=== PATIENT | female | born 1990 | race African-American/Black ===

== ENCOUNTER 2019-12-07 22:57 | Observation (INO) | payer MEDICAID ==
[~2019-12-07] VITALS: Ht 167.6 cm; Wt 106.6 kg
[2019-12-08 00:12] LABS: CLARITY URINE CLEAR (CLEAR); COLOR URINE YELLOW (YELLOW); KETONES URINE NEGATIVE (NEGATIVE); LEUKOCYTE ESTERASE URINE TRACE (NEGATIVE); NITRITE URINE NEGATIVE (NEGATIVE); OCCULT BLOOD URINE TRACE (NEGATIVE); PH URINE 7.5 (4.5-8.0); PROTEIN URINE NEGATIVE (NEGATIVE); SPECIFIC GRAVITY URINE 1.012 (1.005-1.030)
== END 2019-12-08 01:15 | disposition home or self-care (01) ==
LOC: 8 EST LDRP 22:57
PROVIDERS: ADMIT Specialist; ATTEND Specialist
DX: O62.9 Abnormality of forces of labor, unspecified (principal); O36.8130 Decreased fetal movements, third trimester, not applicable or unspecified; R51.9 Headache, unspecified; O99.891 Other specified diseases and conditions complicating pregnancy; R35.0 Frequency of micturition; Z3A.31 31 weeks gestation of pregnancy
CPT/HCPCS: 59025; 76815; 76818; 81003; 82731; G0378